=== PATIENT | female | born 1980 | race Caucasian/White ===

== ENCOUNTER 2016-11-25 09:34 | Day surgery (SDC) | payer MEDICARE, MEDICAID ==
[~2016-11-25 09:34] MED LIST: Lactated Ringers 1,000 ML IV SCH; Lidocaine 1%/Sod Bicarbonate in NS 8.4% 1 ML Syringe PRN; Sodium Chloride 0.9% 10 ML Syringe FLUSH PRN
[2016-11-25] MEDS ORDERED: cefOXitin 2 GM in Premix Bag 1 BAG IV SCH (10:00)
--- NOTE | 2016-11-25 10:37 | PCM.PREANE ---
Preanesthetic Assessment - Procedure Proposed Procedure: Procedure for prolapsed hemorrhoids, hemorrhoidpexy by stapling - Anesthesia/Transfusion/Family Hx Anesthesia History: Prior Anesthesia Without Reaction Type of Anesthesia Reaction: Excessive Nausea/Vomiting ("problems when waking up with vomiting just due to having an empty stomach ") Family History of Anesthesia Reaction: No Transfusion History: No Prior Transfusion(s) Intubation History: Unknown - Review of Systems General: No Symptoms Pulmonary: No Symptoms Cardiovascular: No Symptoms Gastrointestinal: Other (GERD ) Neurological: Numbness (left 2nd and third fingers ), Other (dystonia, involuntary muscle movements ) Other: Reports: Easy Bruising, Thyroid Problems (hypothyroid ) - Physical Assessment NPO Status Date: 11/24/16 NPO Status Time: 21:00 Pulse: 103 O2 Sat by Pulse Oximetry: 95 Respiratory Rate: 20 Blood Pressure: 115/80 Temperature: 37.1 C Height: 1.57 m Weight: 72.575 kg ASA Class: 2 Mental Status: Alert & Oriented x3 Airway Class: Mallampati = 2 Dentition: Reports: Normal Dentition Thyro-Mental Finger Breadths: 3 Mouth Opening Finger Breadths: 3 ROM/Head Extension: Full Lungs: Clear to Auscultation, Normal Respiratory Effort Cardiovascular: Regular Rate, Regular Rhythm - Allergies Allergies/Adverse Reactions: Allergies Allergy/AdvReac Type Severity Reaction Status Date / Time amoxicillin Allergy Cannot Verified 11/24/16 13:41 Remember bakuchiol [From APOP] Allergy Cannot Verified 11/24/16 13:41 Remember carbidopa Allergy Cannot Verified 11/24/16 13:41 Remember haloperidol Allergy Cannot Verified 11/24/16 13:41 Remember levetiracetam Allergy Cannot Verified 11/24/16 13:41 Remember penicillin V Allergy Cannot Verified 11/24/16 13:41 Remember tetracycline Allergy Cannot Verified 11/24/16 13:41 Remember trimethoprim Allergy Cannot Verified 11/24/16 13:41 Remember - Blood Blood Available: No Product(s) Available: None - Anesthesia Plan Pre-Op Medication Ordered: None - Acknowledgements Anesthesia Type Planned: MAC Pt an Appropriate Candidate for the Planned Anesthesia: Yes Alternatives and Risks of Anesthesia Discussed w Pt/Guardian: Yes Pt/Guardian Understands and Agrees with Anesthesia Plan: Yes PreAnesthesia Questionnaire HEENT History: Reports: Other (See Below) Other HEENT History: infected tooth, sore throat, dysphagia, hearing loss Cardiovascular History: Reports: None Respiratory History: Reports: Bronchitis, Recurrent Gastrointestinal History: Reports: GERD, Hemorrhoids Genitourinary History: Reports: UTI, Recurrent FACE CLEANER History: Reports: Other (See Below) Other OB/BYN History: vaginosis Musculoskeletal History: Reports: Arthritis, Other (See Below) Other Musculoskeletal History: dystonia, R wrist pain, L knee pain, muslce spasms Neurological History: Reports: Other (See Below) Other Neuro History: chorea, headaches, dizziness Psychiatric History: Reports: None Endocrine/Metabolic History: Reports: Hypothyroidism Hematologic History: Reports: None Immunologic History: Reports: None Oncologic (Cancer) History: Reports: None Dermatologic History: Reports: None - Past Surgical History Head Surgeries/Procedures: Reports: None HEENT Surgical History: Reports: Oral Surgery Cardiovascular Surgical History: Reports: None Respiratory Surgical History: Reports: None GI Surgical History: Reports: None Female Surgical History: Reports: Breast Reduction, Tubal Ligation Male Surgical History: Reports: None Endocrine Surgical History: Reports: None Neurological Surgical History: Reports: None Musculoskeletal Surgical History: Reports: None Oncologic Surgical History: Reports: None Dermatological Surgical History: Reports: None - SUBSTANCE USE Smoking Status *Q: Never Smoker Tobacco Use Within Last Twelve Months: No Second Hand Smoke Exposure: No Days Per Week of Alcohol Use: 0 Recreational Drug Use History: No - HOME MEDS Home Medications: Home Meds Cetirizine HCl/Pseudoephedrine [ZyrTEC-D] 1 tab PO BID PRN 11/24/16 [History] Cyclobenzaprine [Flexeril] 10 mg PO BID 11/24/16 [History] FLUoxetine [PROzac] 20 mg PO DAILY 11/24/16 [History] Ibuprofen 600 mg PO TID PRN 11/24/16 [History] Levothyroxine Sodium [Levoxyl] 12.5 mg PO DAILY 11/24/16 [History] Meclizine [Antivert] 1 - 2 tab PO DAILY PRN 11/24/16 [History] Omeprazole 40 mg PO DAILY 11/24/16 [History] Triamcinolone Acetonide 1 applic TOP BID 11/24/16 [History] - CURRENT (IN HOUSE) MEDS Current Meds: Current Medications Lactated Ringer's (Ringers, Lactated) 1,000 mls @ 125 mls/hr IV ASDIRECTED CHAR Stop: 11/25/16 23:00 Cefoxitin Sodium 2 gm/ Premix 50 mls @ 100 mls/hr IV ONETIME CHAR Lidocaine/Sodium Bicarbonate (Buffered Lidocaine 1% In Ns 8.4%) 0.25 ml .XX ONETIME PRN PRN Reason: Prior to IV Start Stop: 11/25/16 18:00 Sodium Chloride (Saline Flush) 10 ml FLUSH ASDIRECTED PRN PRN Reason: Keep Vein Open Stop: 11/25/16 18:00
[2016-11-25] MEDS ORDERED: Midazolam 1 MG/ML 2 ML SDV ONE (11:04)
[2016-11-25] MEDS ORDERED: fentaNYL 100 MCG/2 ML SDV ONE (11:04)
[2016-11-25] MEDS ORDERED: Lidocaine 1% with EPINEPHrine 1:100,000 20 ML MDV ONE (11:57)
[2016-11-25] MEDS ORDERED: Bupivacaine 0.5%/EPINEPHrine 1:200,000 50 ML MDV ONE (11:57)
[2016-11-25] MEDS ORDERED: Propofol 200 MG/20 ML SDV ONE (12:22)
--- NOTE | 2016-11-25 13:30 | PCM.OPNOTE ---
- General Post-Op/Procedure Note Date of Surgery/Procedure: 11/25/16 Operative Procedure(s): Procedure for prolapse and hemorrhoids- PPH hemorrhoidal pexy Findings: An anal tag and slightly prolapsing 3 column internal hemorrhoids Pre Op Diagnosis: Grade 3 internal hemorrhoids Post-Op Diagnosis: Same Anesthesia Technique: Local, MAC, Moderate Sedation Primary Surgeon: Kimani Ragland Pathology: Rectal strip EBL in mLs: 1 Complications: None Condition: Good Free Text/Narrative:: After adequate IV sedation and analgesia was obtained with monitoring the patient was placed in the prone jackknife position with her buttocks taped. Betadine solution prep was performed. Anoscopy revealed the 3 column internal hemorrhoids which were uncomplicated. Digital rectal examination revealed normal sphincter tone. A perianal block was performed next with lidocaine and Marcaine. A 2-0 Prolene pursestring suture line was placed about 4 cm above the dentate line. The 33 circular stapler was fired. A 1 cm strip of rectal mucosa was obtained. The staple line was hemostatic. A simple gauze was placed in the canal for a pressure dressing. There were no complications.
--- NOTE | 2016-11-25 13:42 | PCM48HPAN ---
Post Anesthesia Note - EVALUATION WITHIN 48HRS OF ANESTHETIC Vital Signs in Normal Range: Yes Patient Participated in Evaluation: Yes Respiratory Function Stable: Yes Airway Patent: Yes Cardiovascular Function Stable: Yes Hydration Status Stable: Yes Pain Control Satisfactory: Yes Nausea and Vomiting Control Satisfactory: Yes Mental Status Recovered: Yes
[2016-11-25 14:25] VITALS: BP 132/84
== END 2016-11-25 14:37 | disposition home or self-care (01) ==
LOC: JD.SDS 09:34
PROVIDERS: ATTEND Surgery
DX: K64.2 Third degree hemorrhoids (principal); K64.4 Residual hemorrhoidal skin tags; E03.9 Hypothyroidism, unspecified; Z88.0 Allergy status to penicillin; Z88.1 Allergy status to other antibiotic agents; Z88.8 Allergy status to other drugs, medicaments and biological substances; Z79.899 Other long term (current) drug therapy; Z98.890 Other specified postprocedural states; Z98.51 Tubal ligation status
CPT/HCPCS: 46947; 88304; J0694; J2250; J3010; J7120; 00902; J2704

== ENCOUNTER 2017-03-17 09:18 | Day surgery (SDC) | payer MEDICARE, MEDICAID ==
[~2017-03-17 09:18] MED LIST changes: +Lidocaine 1%/Sod Bicarbonate in NS 8.4% 1 ML Syringe IV PRN; -Lidocaine 1%/Sod Bicarbonate in NS 8.4% 1 ML Syringe PRN
[2017-03-17] MEDS ORDERED: Lidocaine 1% with EPINEPHrine 1:100,000 20 ML MDV ONE (09:47)
[2017-03-17] MEDS ORDERED: Bupivacaine 0.5%/EPINEPHrine 1:200,000 50 ML MDV ONE (09:47)
[2017-03-17] MEDS ORDERED: Lidocaine 1% 30 ML SDV ONE (09:49)
--- NOTE | 2017-03-17 10:03 | PCM.PREANE ---
Preanesthetic Assessment - Anesthesia/Transfusion/Family Hx Anesthesia History: Prior Anesthesia Without Reaction Family History of Anesthesia Reaction: No Transfusion History: No Prior Transfusion(s) Intubation History: Unknown - Review of Systems General: No Symptoms Pulmonary: No Symptoms Cardiovascular: No Symptoms Gastrointestinal: No Symptoms (GERD), Difficulty Swallowing Neurological: No Symptoms (History of chorea/dystonia/ Pt. presents with constant jittery body movements due to chorea.), Headache (history of chronic headaches), Numbness (left hand pointer and 3rd finger.) Other: Reports: Easy Bruising, Sinus Problem (history of sinus problems/sinus infections), Neck Pain, Anxiety - Physical Assessment NPO Status Date: 03/16/17 NPO Status Time: 21:30 Pulse: 74 O2 Sat by Pulse Oximetry: 96 Respiratory Rate: 16 Blood Pressure: 119/95 Temperature: 36.9 C Height: 1.55 m Weight: 66 kg ASA Class: 2 Mental Status: Alert & Oriented x3 Airway Class: Mallampati = 2 Dentition: Reports: Normal Dentition, Missing Tooth/Teeth, Caries Thyro-Mental Finger Breadths: 3 Mouth Opening Finger Breadths: 3 ROM/Head Extension: Full Lungs: Clear to Auscultation, Normal Respiratory Effort Cardiovascular: Regular Rate, Regular Rhythm, No Murmurs - Allergies Allergies/Adverse Reactions: Allergies Allergy/AdvReac Type Severity Reaction Status Date / Time amoxicillin Allergy Cannot Verified 03/16/17 13:08 Remember bakuchiol [From APOP] Allergy Cannot Verified 03/16/17 13:08 Remember carbidopa Allergy Cannot Verified 03/16/17 13:08 Remember haloperidol Allergy Cannot Verified 03/16/17 13:08 Remember levetiracetam Allergy Cannot Verified 03/16/17 13:08 Remember milk Allergy Cannot Verified 03/16/17 13:08 Remember penicillin V Allergy Cannot Verified 03/16/17 13:08 Remember tetracycline Allergy Cannot Verified 03/16/17 13:08 Remember trimethoprim Allergy Cannot Verified 03/16/17 13:08 Remember - Anesthesia Plan Pre-Op Medication Ordered: None - Acknowledgements Anesthesia Type Planned: MAC Pt an Appropriate Candidate for the Planned Anesthesia: Yes Alternatives and Risks of Anesthesia Discussed w Pt/Guardian: Yes Pt/Guardian Understands and Agrees with Anesthesia Plan: Yes PreAnesthesia Questionnaire HEENT History: Reports: Other (See Below) Other HEENT History: infected tooth, sore throat, dysphagia, hearing loss Cardiovascular History: Reports: None Respiratory History: Reports: Bronchitis, Recurrent Gastrointestinal History: Reports: GERD, Hemorrhoids Genitourinary History: Reports: UTI, Recurrent LOAN OPERATIONS MANAGER History: Reports: Other (See Below) Other OB/BYN History: vaginosis, hot flashes Musculoskeletal History: Reports: Arthritis, Other (See Below) Other Musculoskeletal History: dystonia, R wrist pain, L knee pain, muslce spasms Neurological History: Reports: Other (See Below) Other Neuro History: chorea, headaches, dizziness Psychiatric History: Reports: Other (See Below) Other Psychiatric History: nervous disorder Endocrine/Metabolic History: Reports: Hypothyroidism Other Endocrine/Metabolic History: euthyroid thyroiditis, thryoid cyst Hematologic History: Reports: None Immunologic History: Reports: None Oncologic (Cancer) History: Reports: None Dermatologic History: Reports: Eczema - Past Surgical History Head Surgeries/Procedures: Reports: None HEENT Surgical History: Reports: Oral Surgery Cardiovascular Surgical History: Reports: None Respiratory Surgical History: Reports: None GI Surgical History: Reports: Other (See Below) Other GI Surgeries/Procedures: procedure for prolapsed hemorrhoids Female Surgical History: Reports: Breast Reduction, Tubal Ligation Male Surgical History: Reports: None Endocrine Surgical History: Reports: None Neurological Surgical History: Reports: None Musculoskeletal Surgical History: Reports: None Oncologic Surgical History: Reports: None Dermatological Surgical History: Reports: None - SUBSTANCE USE Smoking Status *Q: Never Smoker Tobacco Use Within Last Twelve Months: No Second Hand Smoke Exposure: No Days Per Week of Alcohol Use: 0 Recreational Drug Use History: No - HOME MEDS Home Medications: Home Meds Cetirizine HCl/Pseudoephedrine [ZyrTEC-D] 1 tab PO BID PRN 11/24/16 [History] Cyclobenzaprine [Flexeril] 10 mg PO BID 11/24/16 [History] FLUoxetine [PROzac] 20 mg PO DAILY 11/24/16 [History] Ibuprofen 600 mg PO TID PRN 11/24/16 [History] Meclizine [Antivert] 1 - 2 tab PO DAILY PRN 11/24/16 [History] Omeprazole 40 mg PO DAILY 11/24/16 [History] Triamcinolone Acetonide 1 applic TOP BID 11/24/16 [History] Celecoxib [Celecoxib] 200 mg PO DAILY 03/16/17 [History] Hydrocortisone Acetate [Anusol-Hc] 25 mg RECTAL BEDTIME 03/16/17 [History] oxyCODONE HCl/Acetaminophen [oxyCODONE-Acetaminophen 5-325] 1 tab PO ASDIRECTED PRN 03/17/17 [History] - CURRENT (IN HOUSE) MEDS Current Meds: Current Medications Lactated Ringer's (Ringers, Lactated) 1,000 mls @ 125 mls/hr IV ASDIRECTED CHAR Stop: 03/17/17 23:00 Lidocaine/Sodium Bicarbonate (Buffered Lidocaine 1% In Ns 8.4%) 0.25 ml IV ONETIME PRN PRN Reason: Prior to IV Start Stop: 03/17/17 18:00 Sodium Chloride (Saline Flush) 10 ml FLUSH ASDIRECTED PRN PRN Reason: Keep Vein Open Stop: 03/17/17 18:00
[2017-03-17] MEDS ORDERED: fentaNYL 100 MCG/2 ML SDV ONE (10:36)
[2017-03-17] MEDS ORDERED: Ondansetron 4 MG/2 ML SDV ONE (10:36)
[2017-03-17] MEDS ORDERED: Lidocaine 1% 4 ML ONE (10:36)
[2017-03-17] MEDS ORDERED: Dexamethasone 4 MG/ML SDV ONE (10:36)
[2017-03-17] MEDS ORDERED: Propofol 200 MG/20 ML SDV ONE (10:36)
[2017-03-17] MEDS ORDERED: Midazolam 1 MG/ML 2 ML SDV ONE (10:37)
--- NOTE | 2017-03-17 12:54 | PCM.OPNOTE ---
- General Post-Op/Procedure Note Date of Surgery/Procedure: 03/17/17 Operative Procedure(s): 1. Anoscopy. 2. Fulguration of a staple line granuloma Findings: Polypoid type granulation tissue emanating from the previous staple line at the 6 o'clock position. There were no fissures or hemorrhoids. Pre Op Diagnosis: Intermittent bright red bleeding per rectum Post-Op Diagnosis: Staple line granuloma Anesthesia Technique: Local, MAC, Moderate Sedation Primary Surgeon: Kimani Ragland Pathology: None EBL in mLs: 0 Complications: None Condition: Good Free Text/Narrative:: After adequate IV sedation and analgesia was obtained the patient was placed in the prone jackknife position with her buttocks taped and with monitoring. Perianal inspection was unremarkable. Anoscopy revealed no fissures or fistulas. There were no external or internal hemorrhoids. Inspection of the previous PPH staple line revealed the findings above. At this point I injected 2 mL of 1% lidocaine with epinephrine in the base of the lesion. I cauterized the lesion to the rectal mucosa completely removing it. There were no complications. Blood loss was 0.
[2017-03-17 12:55] VITALS: BP 114/72
== END 2017-03-17 13:15 | disposition home or self-care (01) ==
LOC: JD.SDS 09:18
PROVIDERS: ATTEND Surgery
DX: K62.89 Other specified diseases of anus and rectum (principal); G25.5 Other chorea; G24.9 Dystonia, unspecified; E07.81 Sick-euthyroid syndrome; K04.7 Periapical abscess without sinus; H90.41 Sensorineural hearing loss, unilateral, right ear, with unrestricted hearing on the contralateral side; E04.1 Nontoxic single thyroid nodule; N76.0 Acute vaginitis; E03.9 Hypothyroidism, unspecified; Z88.1 Allergy status to other antibiotic agents; Z88.8 Allergy status to other drugs, medicaments and biological substances; Z88.0 Allergy status to penicillin; Z79.899 Other long term (current) drug therapy; Z98.51 Tubal ligation status; Z98.890 Other specified postprocedural states; Z91.011 Allergy to milk products
CPT/HCPCS: 46615; J1100; J2250; J2405; J3010; J7120; 00902; J2001; J2704

== ENCOUNTER 2018-05-16 12:00 | Emergency (ER) | payer MEDICARE, MEDICAID ==
[2018-05-16] MEDS ORDERED: HYDROmorphone 1 MG/ML Syringe IVPUSH STA (12:56)
[2018-05-16] MEDS ORDERED: Sodium Chloride 0.9% 1,000 ML IV SCH (13:00)
[2018-05-16] MEDS ORDERED: Sodium Chloride 0.9% 10 ML Syringe FLUSH ONE (13:10)
[2018-05-16] MEDS ORDERED: Diatrizoate Meglumine/Diatrizoate Sodium 37% 120 ML Bottle PO ONE (13:10)
[2018-05-16] MEDS ORDERED: Iopamidol 755 Mg/ML 200 ML Bottle IV ONE (13:12)
--- NOTE | 2018-05-16 14:03 | EDM.PDOC ---
ED HPI GENERAL MEDICAL PROBLEM - General Chief Complaint: Abdominal Pain Stated Complaint: [facility] Time Seen by Provider: 05/16/18 12:24 Source of Information: Reports: Patient, RN Notes Reviewed History Limitations: Reports: Uncooperative - History of Present Illness INITIAL COMMENTS - FREE TEXT/NARRATIVE: Patient is a 37-year-old female who presents to the ED via [facility] for evaluation of abdominal pain. She states that she has been having some right lower quadrant abdominal pain that started Wednesday night. She states that everything in her stomach hurts but the right lower quadrant is the most tender. She notes this to be a burning sort of pain that waxes and wanes in nature. She does note that she did start her menses Wednesday night early Wednesday morning, she thought maybe it was related to this or some slight constipation. She notes that she had a good BM last night however. She is able to pass gas, and belch. She thought maybe it was a gas buildup as well. She has a history of heartburn. She states the pain can be dull and then sharp at times. She notes that her stomach is a little tender or hurts when she does eat. She states that she has some hot flashes with sweating, some nausea, vomiting, no diarrhea or shortness of breath or chest pain. She does not have a history of ovarian cysts or painful periods. She further denies any dysuria, urinary frequency or urgency. She states that she took one ibuprofen for the pain, she states that she still has an appendix and gallbladder at this time. She notes an abdominal surgery history of a tubal ligation. She notes her primary care providers are Aranza Barnes and Matt Gaffney at the [facility]. The patient states that she is hungry and is able to eat but is somewhat nauseous and it is painful to eat. She had supper last night but has not eaten much for food today at all. Right Lower Abdominal Pain Score (Numeric/FACES): 9 - Related Data Allergies Allergy/AdvReac Type Severity Reaction Status Date / Time bakuchiol [From APOP] Allergy Cannot Verified 05/16/18 12:09 Remember carbidopa Allergy Cannot Verified 05/16/18 12:09 Remember penicillin V Allergy Itching Verified 05/16/18 12:09 tetracycline Allergy Cannot Verified 05/16/18 12:09 Remember trimethoprim Allergy Hives Verified 05/16/18 12:09 amoxicillin AdvReac Nausea and Verified 05/16/18 12:09 Vomiting haloperidol AdvReac Other Verified 05/16/18 12:09 levetiracetam AdvReac Vomiting Verified 05/16/18 12:09 milk AdvReac Other Verified 05/16/18 12:09 Home Meds: Home Meds FLUoxetine [PROzac] 20 mg PO BEDTIME 11/24/16 [History] Ibuprofen 600 mg PO TID PRN 11/24/16 [History] Levothyroxine [Synthroid] 50 mcg PO BEDTIME 01/25/18 [History] Zolpidem Tartrate [Ambien] 5 mg PO BEDTIME PRN 01/25/18 [History] traMADol [Ultram] 50 - 100 mg PO TID PRN 01/25/18 [History] traMADol [Ultram] 50 mg PO Q6H PRN #28 tab 05/16/18 [Rx] Past Medical History HEENT History: Reports: Other (See Below) Other HEENT History: infected tooth, sore throat, dysphagia, hearing loss Cardiovascular History: Reports: None Respiratory History: Reports: Bronchitis, Recurrent Gastrointestinal History: Reports: GERD, Hemorrhoids Genitourinary History: Reports: UTI, Recurrent YARN SPINNER History: Reports: Other (See Below) Other YARN SPINNER History: vaginosis, hot flashes Musculoskeletal History: Reports: Arthritis, Other (See Below) Other Musculoskeletal History: dystonia, R wrist pain, L knee pain, muslce spasms Neurological History: Reports: Other (See Below) Other Neuro History: chorea, headaches, dizziness Psychiatric History: Reports: Other (See Below) Other Psychiatric History: nervous disorder Endocrine/Metabolic History: Reports: Hypothyroidism Other Endocrine/Metabolic History: euthyroid thyroiditis, thryoid cyst Hematologic History: Reports: None Immunologic History: Reports: None Oncologic (Cancer) History: Reports: None Dermatologic History: Reports: Eczema - Past Surgical History Head Surgeries/Procedures: Reports: None HEENT Surgical History: Reports: Oral Surgery Cardiovascular Surgical History: Reports: None Respiratory Surgical History: Reports: None GI Surgical History: Reports: Other (See Below) Other GI Surgeries/Procedures: procedure for prolapsed hemorrhoids Female Surgical History: Reports: Breast Reduction, Tubal Ligation Endocrine Surgical History: Reports: None Neurological Surgical History: Reports: None Musculoskeletal Surgical History: Reports: None Oncologic Surgical History: Reports: None Dermatological Surgical History: Reports: None Social & Family History - Tobacco Use Smoking Status *Q: Never Smoker - Caffeine Use Caffeine Use: Reports: None - Recreational Drug Use Recreational Drug Use: No ED ROS GENERAL - Review of Systems Review Of Systems: See Below Constitutional: Reports: Diaphoresis, Other (hot flashes) HEENT: Reports: No Symptoms Respiratory: Reports: No Symptoms Cardiovascular: Reports: No Symptoms Endocrine: Reports: No Symptoms GI/Abdominal: Reports: Abdominal Pain (RLQ and RUQ), Nausea, Vomiting (1 episode of bililous vomiting today). Denies: Bloody Stool, Constipation, Diarrhea : Denies: Dysuria, Flank Pain, Frequency Musculoskeletal: Reports: No Symptoms Skin: Reports: No Symptoms Neurological: Reports: Pre-Existing Deficit (nerve disorder, chorea) Psychiatric: Reports: No Symptoms Hematologic/Lymphatic: Reports: No Symptoms Immunologic: Reports: No Symptoms ED EXAM, GI/ABD - Physical Exam Exam: See Below Exam Limited By: No Limitations General Appearance: Alert, WD/WN, No Apparent Distress Eyes: Bilateral: Normal Appearance Ears: Normal External Exam Nose: Normal Inspection Throat/Mouth: Normal Inspection, Normal Lips, Normal Teeth, Normal Oropharynx, Normal Voice, No Airway Compromise Head: Atraumatic, Normocephalic Neck: Normal Inspection Respiratory/Chest: No Respiratory Distress, Lungs Clear, Normal Breath Sounds, No Accessory Muscle Use, Chest Non-Tender Cardiovascular: Normal Peripheral Pulses, Regular Rate, Rhythm, No Murmur GI/Abdominal Exam: Normal Bowel Sounds, Soft, No Distention, Tender (RUQ and RLQ exquisitely, diffuse tenderness throughout abdomen). No: Rigid, Rebound Extremities: Normal Inspection, Normal Capillary Refill Neurological: Alert, Oriented, Normal Cognition, Other (chorea observed, pt states this is normal for her, and has not worsened from her baseling) Psychiatric: Normal Affect, Normal Mood Skin Exam: Warm, Dry, Intact, Normal Color, No Rash Course - Vital Signs Last Recorded V/S: Last Vital Signs Temp 98.1 F 05/16/18 12:07 Pulse 71 05/16/18 12:07 Resp 16 05/16/18 12:07 BP Pulse Ox 100 05/16/18 12:07 - Orders/Labs/Meds Orders: Active Orders 24 hr Category Date Time Status UA W/MICROSCOPIC [URIN] Stat Lab 05/16/18 15:31 Received Sodium Chloride 0.9% [Normal Saline] 1,000 ml Med 05/16/18 13:00 Active IV ASDIRECTED Medication Orders Sodium Chloride (Normal Saline) 1,000 mls @ 999 mls/hr IV ASDIRECTED CHAR Last Admin: 05/16/18 13:11 Dose: 999 mls/hr Labs: Laboratory Tests 05/16/18 05/16/18 05/16/18 Range/Units 14:10 14:10 15:31 WBC 9.90 (3.98-10.04) K/mm3 RBC 4.63 (3.98-5.22) M/mm3 Hgb 12.4 (11.2-15.7) gm/L Hct 37.8 (34.1-44.9) % MCV 81.6 (79.4-94.8) fl MCH 26.8 (25.6-32.2) pg MCHC 32.8 (32.2-35.5) g/dl RDW Std Deviation 44.5 (36.4-46.3) fL Plt Count 419 H (182-369) K/mm3 MPV 9.5 (9.4-12.3) fl Neutrophils % (Manual) 76 H (40-60) % Band Neutrophils % 1 (0-10) % Lymphocytes % (Manual) 18 L (20-40) % Atypical Lymphs % 0 % Monocytes % (Manual) 4 (2-10) % Eosinophils % (Manual) 1 (0.7-5.8) % Basophils % (Manual) 0 L (0.1-1.2) Platelet Estimate Adequate RBC Morph Comment Normal Sodium 140 (136-145) mEq/L Potassium 3.6 (3.5-5.1) mEq/L Chloride 105 (98-107) mEq/L Carbon Dioxide 22 (21-32) mEq/L Anion Gap 16.6 H (5-15) BUN 8 (7-18) mg/dL Creatinine 0.8 (0.55-1.02) mg/dL Est Cr Clr Drug Dosing 76.15 mL/min Estimated GFR (MDRD) > 60 (>60) mL/min BUN/Creatinine Ratio 10.0 L (14-18) Glucose 88 (74-106) mg/dL Calcium 9.2 (8.5-10.1) mg/dL Total Bilirubin 0.6 (0.2-1.0) mg/dL AST 15 (15-37) U/L ALT 14 (14-59) U/L Alkaline Phosphatase 74 (46-116) U/L Total Protein 7.3 (6.4-8.2) g/dl Albumin 3.7 (3.4-5.0) g/dl Globulin 3.6 gm/dL Albumin/Globulin Ratio 1.0 (1-2) Lipase 95 (73-393) U/L Urine HCG, Qual Negative (NEGATIVE) Meds: Medications Generic Name Dose Route Start Last Admin Trade Name Freq PRN Reason Stop Dose Admin Sodium Chloride 1,000 mls @ 999 mls/hr 05/16/18 13:00 05/16/18 13:11 Normal Saline IV 999 mls/hr ASDIRECTED CHAR Administration Discontinued Medications Generic Name Dose Route Start Last Admin Trade Name Freq PRN Reason Stop Dose Admin Diatrizoate Meglum/Diatrizoate Sod 90 ml 05/16/18 13:10 05/16/18 14:19 Gastrografin 37% PO 05/16/18 13:11 90 ml ONETIME ONE Administration Hydromorphone HCl 0.5 mg 05/16/18 12:56 05/16/18 13:10 Dilaudid IVPUSH 05/16/18 12:57 0.5 mg ONETIME STA Administration Iopamidol 200 ml 05/16/18 13:12 05/16/18 14:19 Isovue-370 (76%) IV 05/16/18 13:13 100 ml ONETIME ONE Administration Sodium Chloride 10 ml 05/16/18 13:10 05/16/18 14:19 Saline Flush FLUSH 05/16/18 13:11 10 ml ONETIME ONE Administration - Re-Assessments/Exams Free Text/Narrative Re-Assessment/Exam: 05/16/18 13:10 Patient presents to the ED for the evaluation of abdominal pain. I did order a CBC, CMP, lipase, UA with HCG, IV fluids, abdominal/pelvis CT with contrast for further evaluation. 05/16/18 15:[address] is done and does not demonstrate any sign of gallstones, or appendicitis at this time. The radiologist noted fibroid change within the uterus. Her other labs do not demonstrate any sign of an acute bacterial infection, UA is pending at this time. 05/16/18 15:29 Results were discussed with the patient, she states that she still is having some mild pain I did discuss with her the possibility of following up with OB/ [facility] [employer] DEVELOPER for her issues. I will give the patient some tramadol for pain relief and some antinausea medications and have her follow up with OB for further management. Departure - Departure Time of Disposition: 16:41 Disposition: Home, Self-Care 01 Condition: Fair Clinical Impression: Lower abdominal pain, unspecified - Discharge Information *PRESCRIPTION DRUG MONITORING PROGRAM REVIEWED*: No *COPY OF PRESCRIPTION DRUG MONITORING REPORT IN PATIENT ANGELITA: No Prescriptions: traMADol [Ultram] 50 mg PO Q6H PRN #28 tab PRN Reason: Pain Instructions: Pain Medicine Instructions, [id number], Abdominal Pain, Adult, [id number] Referrals: Aranza Barnes [employer] [Primary Care Provider] - Forms: ED Department Discharge Additional Instructions: You have been evaluated in the ED today for your abdominal pain. You did have a workup done today including lab work and a CT of the abdomen. The CT was done with contrast, your urinalysis did show some blood in your urine which is somewhat suggestive of a kidney stone with your presentation. However the CT as I stated above was done with contrast and would obscure the kidney stone on the study. Management for this is increase fluid intake and pain meds. You have been provided with a prescription for tramadol, please take one tab every 4-6 hours as needed for pain. You may take 400 mg of ibuprofen with this to provide further pain relief if needed. Please strain your urine over the next few days to see if this does provide a kidney stone. You may also have blood in your urine due to being on your menses. Although with your pain in is more suggestive of a kidney stone at this time. Your CT did demonstrate fibroid change in the uterus, please follow up with OB/ [facility] [employer] END DEVELOPER at your soonest convenience for further management of this please call and pick an YARN SPINNER provider of your choice. Please return to the ED if your symptoms change or worsen. - My Orders Last 24 Hours: My Active Orders 05/16/18 13:00 Sodium Chloride 0.9% [Normal Saline] 1,000 ml IV ASDIRECTED 05/16/18 15:31 UA W/MICROSCOPIC [URIN] Stat - Assessment/Plan Last 24 Hours: My Active Orders 05/16/18 13:00 Sodium Chloride 0.9% [Normal Saline] 1,000 ml IV ASDIRECTED 05/16/18 15:31 UA W/MICROSCOPIC [URIN] Stat
--- NOTE | 2018-05-16 14:51 | CT ---
CT abdomen and pelvis Technique: Multiple axial sections were obtained from slightly below the dome of the diaphragm inferiorly to the pubic symphysis. Intravenous and oral contrast was utilized. Delayed images were also obtained through the bladder. Comparison: No prior abdominal imaging is available. Findings: Visualized lung bases are clear. Liver shows no focal parenchymal abnormality. Spleen appears within normal limits. Adrenal glands show no nodule. Pancreas is within normal limits. Gallbladder contains no calcified gallstones. Kidneys show symmetric contrast enhancement without hydronephrosis or mass. Aorta shows no aneurysm. No retroperitoneal adenopathy or mesenteric abnormalities are seen. Appendix believed to be visualized. Fibroid change is noted within the uterus. No free fluid or inflammatory change is seen. Bone window settings were reviewed which show disc space narrowing and vacuum phenomena within the L5-S1 disc. Impression: 1. Fibroid change within the uterus. 2. Other incidental findings. Nothing acute is seen on CT study of the abdomen and pelvis. Diagnostic code #2
== END 2018-05-16 17:16 | disposition home or self-care (01) ==
LOC: JD.ED 12:00
DX: R10.31 Right lower quadrant pain (principal); E03.9 Hypothyroidism, unspecified; K21.9 Gastro-esophageal reflux disease without esophagitis; Z88.0 Allergy status to penicillin; Z88.1 Allergy status to other antibiotic agents; Z91.011 Allergy to milk products; Z88.8 Allergy status to other drugs, medicaments and biological substances; Z79.899 Other long term (current) drug therapy
CPT/HCPCS: 36415; 74177; 80053; 81001; 81025; 83690; 85007; 85027; 96361; 96374; 99284; J1170; J7040; Q9963; Q9967

== ENCOUNTER 2018-06-21 08:00 | Observation (INO) | payer MEDICARE, MEDICAID ==
--- NOTE | 2018-06-21 07:57 | PCM.PREANE ---
Preanesthetic Assessment - Anesthesia/Transfusion/Family Hx Anesthesia History: Prior Anesthesia Reaction Type of Anesthesia Reaction: Excessive Nausea/Vomiting Family History of Anesthesia Reaction: No Transfusion History: No Prior Transfusion(s) Intubation History: Unknown - Review of Systems General: No Symptoms Pulmonary: No Symptoms, Cough (URI noted 2 weeks ago, patient states cough is better.) Cardiovascular: No Symptoms, Dyspnea on Exertion Gastrointestinal: No Symptoms (History of GERD), Abdominal Pain (upper abdominal pain 05/25: after effects of post menstrual cycle.), Difficulty Swallowing (History of:) Neurological: No Symptoms (History of lumbar pain with radiculopathy bilaterally noted on occasion.), Headache, Numbness (dystonia, involuntary muscle movements(history of chorea)), Difficulty Walking, Gait Disturbance ( from chorea) Other: Reports: Easy Bruising, Thyroid Problems (history of hypothyroid), Sinus Problem (allergic rhinitis), Neck Pain - Physical Assessment NPO Status Date: 06/20/18 NPO Status Time: 21:00 Pulse: 89 O2 Sat by Pulse Oximetry: 99 Respiratory Rate: 20 Blood Pressure: 140/97 Temperature: 36.3 C Height: 1.57 m Weight: 67 kg ASA Class: 2 Mental Status: Alert & Oriented x3 Airway Class: Mallampati = 2 Dentition: Reports: Normal Dentition, Missing Tooth/Teeth, Caries Thyro-Mental Finger Breadths: 3 Mouth Opening Finger Breadths: 3 ROM/Head Extension: Full Lungs: Clear to Auscultation, Normal Respiratory Effort Cardiovascular: Regular Rate, Regular Rhythm, No Murmurs - Lab Values: All labs reviewed and noted and within acceptable ranges to proceed with scheduled procedure. - Allergies Allergies/Adverse Reactions: Allergies Allergy/AdvReac Type Severity Reaction Status Date / Time bakuchiol [From APOP] Allergy Other Verified 06/20/18 13:53 carbidopa Allergy Cannot Verified 06/20/18 13:53 Remember clavulanic acid Allergy Itching Verified 06/20/18 13:53 [From Augmentin] levetiracetam Allergy Hives Verified 06/20/18 13:53 penicillin V Allergy Itching Verified 06/20/18 13:53 sulfamethoxazole Allergy Hives Verified 06/20/18 13:53 [From Bactrim] tetracycline Allergy Cannot Verified 06/20/18 13:53 Remember trimethoprim Allergy Hives Verified 06/20/18 13:53 amoxicillin AdvReac Nausea and Verified 06/20/18 13:53 Vomiting haloperidol AdvReac Other Verified 06/20/18 13:53 milk AdvReac Other Verified 06/20/18 13:53 - Anesthesia Plan Pre-Op Medication Ordered: None - Acknowledgements Anesthesia Type Planned: General Anesthesia Pt an Appropriate Candidate for the Planned Anesthesia: Yes Alternatives and Risks of Anesthesia Discussed w Pt/Guardian: Yes Pt/Guardian Understands and Agrees with Anesthesia Plan: Yes PreAnesthesia Questionnaire HEENT History: Reports: Hard of Hearing, Other (See Below) Other HEENT History: Allergic rhinitis, sensorineural hearing loss right ear, tooth pain/infected tooth, sinusitis, sore throat Cardiovascular History: Reports: None Other Cardiovascular History: Hypokalemia Respiratory History: Reports: Bronchitis, Recurrent, Other (See Below) Other Respiratory History: Acute URI, cough Gastrointestinal History: Reports: Hemorrhoids Other Gastrointestinal History: Abdominal pain, rectal bleeding, prolapsed internal hemorrhoids (Grade 3) Genitourinary History: Reports: UTI, Recurrent Other Genitourinary History: Hematuria SIMONIZER History: Reports: Other (See Below) Other OB/BYN History: Vaginosis, yeast infection Musculoskeletal History: Reports: Arthritis Other Musculoskeletal History: Left knee pain, left foot pain, lumbar back pain , right wrist pain Neurological History: Reports: Headaches, Chronic Other Neuro History: Chorea, dystonia, lumbar radiculopathy Psychiatric History: Reports: Other (See Below) Other Psychiatric History: Insomnia Endocrine/Metabolic History: Reports: Hypothyroidism Other Endocrine/Metabolic History: Elevated TSH, euthyroid thyroiditis, thyroid cyst, thyroid nodule Hematologic History: Reports: None Immunologic History: Reports: None Oncologic (Cancer) History: Reports: None Dermatologic History: Reports: Eczema Other Dermatologic History: Open wound of knee, skin lesions - Past Surgical History Head Surgeries/Procedures: Reports: None Other HEENT Surgeries/Procedures: [place] teeth extraction Cardiovascular Surgical History: Reports: None Respiratory Surgical History: Reports: None GI Surgical History: Reports: None Female Surgical History: Reports: Breast Reduction, Tubal Ligation Neurological Surgical History: Reports: None Musculoskeletal Surgical History: Reports: Carpal Tunnel Oncologic Surgical History: Reports: None Dermatological Surgical History: Reports: None - SUBSTANCE USE Smoking Status *Q: Never Smoker Second Hand Smoke Exposure: No Recreational Drug Use History: No - HOME MEDS Home Medications: Home Meds Ibuprofen 600 mg PO TID PRN 11/24/16 [History] Zolpidem Tartrate [Ambien] 5 mg PO BEDTIME PRN 01/25/18 [History] Potassium Chloride [Klor-Con 10] 20 meq PO DAILY 06/20/18 [History] - CURRENT (IN HOUSE) MEDS Current Meds: Current Medications Lactated Ringer's (Ringers, Lactated) 1,000 mls @ 125 mls/hr IV ASDIRECTED CHAR Stop: 06/21/18 23:00 Lidocaine/Sodium Bicarbonate (Buffered Lidocaine 1% In Ns 8.4%) 0.25 ml IDERM ONETIME PRN PRN Reason: Prior to IV Start Stop: 06/21/18 18:00 Sodium Chloride (Saline Flush) 10 ml FLUSH ASDIRECTED PRN PRN Reason: Keep Vein Open Stop: 06/21/18 18:00 Discontinued Medications Cefazolin Sodium (Ancef) Confirm Administered Dose 2 gm .ROUTE .STK-MED ONE Stop: 06/21/18 07:31 Dexamethasone (Dexamethasone) Confirm Administered Dose 20 mg .ROUTE .STK-MED ONE Stop: 06/21/18 07:31 Fentanyl (Sublimaze) Confirm Administered Dose 250 mcg .ROUTE .STK-MED ONE Stop: 06/21/18 07:32 Hydromorphone HCl (Dilaudid) Confirm Administered Dose 0.5 mg .ROUTE .STK-MED ONE Stop: 06/21/18 07:31 Lidocaine HCl (Xylocaine-Mpf 1%) Confirm Administered Dose 6 mls @ as directed .ROUTE .STK-MED ONE Stop: 06/21/18 07:31 Lactated Ringer's (Ringers, Lactated) Confirm Administered Dose 1,000 mls @ as directed .ROUTE .STK-MED ONE Stop: 06/21/18 07:31 Ketorolac Tromethamine (Toradol) Confirm Administered Dose 30 mg .ROUTE .STK- MED ONE Stop: 06/21/18 07:31 Midazolam HCl (Versed 1 Mg/Ml) Confirm Administered Dose 2 mg .ROUTE .STK-MED ONE Stop: 06/21/18 07:32 Ondansetron HCl (Zofran) Confirm Administered Dose 4 mg .ROUTE .STK-MED ONE Stop: 06/21/18 07:31 Propofol (Diprivan 20 Ml) Confirm Administered Dose 200 mg .ROUTE .STK-MED ONE Stop: 06/21/18 07:31 Rocuronium Roberts (Zemuron) Confirm Administered Dose 50 mg .ROUTE .STK-MED ONE Stop: 06/21/18 07:31
[~2018-06-21 08:00] MED LIST changes: +Dexamethasone 4 MG/ML 5 ML MDV ONE; +HYDROmorphone 0.5 MG/0.5 ML Syringe ONE; +Ketorolac 30 MG/ML SDV ONE; +Lactated Ringers 1,000 ML ONE; +Lidocaine 1% 6 ML ONE; +Lidocaine 1%/Sod Bicarbonate in NS 8.4% 1 ML Syringe IDERM PRN; -Lidocaine 1%/Sod Bicarbonate in NS 8.4% 1 ML Syringe IV PRN; +Midazolam 1 MG/ML 2 ML SDV ONE; +Ondansetron 4 MG/2 ML SDV ONE; +Propofol 200 MG/20 ML SDV ONE; +Rocuronium 50 MG/5 ML Vial ONE; +Scopolamine 1.5 MG Transdermal Patch TRDERM PRN; +ceFAZolin 1 GM Vial ONE; +fentaNYL 250 MCG/5 ML SDV ONE
[2018-06-21] MEDS ORDERED: Albuterol 0.083% 2.5 MG/3 ML Neb Soln NEB PRN ×2 (08:01→09:15)
[2018-06-21] MEDS ORDERED: Bupivacaine 0.5% 30 ML SDV ONE (08:06)
[2018-06-21] MEDS ORDERED: Sodium Chloride 0.9% 50 ML SDV ONE (08:06)
[2018-06-21] MEDS ORDERED: Lidocaine 1% with EPINEPHrine 1:100,000 20 ML MDV ONE (08:06)
[2018-06-21] MEDS ORDERED: Midazolam 1 MG/ML 2 ML SDV ONE (08:51)
[2018-06-21] MEDS ORDERED: Haloperidol Lactate 5 MG/ML SDV IVPUSH PRN (09:15)
[2018-06-21] MEDS ORDERED: diphenhydrAMINE 50 MG/ML SDV IVPUSH PRN (09:15)
[2018-06-21] MEDS ORDERED: Midazolam 1 MG/ML 2 ML SDV IVPUSH PRN (09:15)
[2018-06-21] MEDS ORDERED: Phenylephrine 1 MG in Sodium Chloride 0.9% 10 ML IV SCH (09:15)
[2018-06-21] MEDS ORDERED: ePHEDrine 50 MG/ML SDV IVPUSH PRN (09:15)
[2018-06-21] MEDS ORDERED: Ondansetron 4 MG/2 ML SDV IVPUSH PRN (09:15)
[2018-06-21] MEDS ORDERED: HYDROmorphone 0.5 MG/0.5 ML Syringe IVPUSH PRN (09:15)
[2018-06-21] MEDS ORDERED: Lactated Ringers 1,000 ML ONE (09:32)
[2018-06-21] MEDS ORDERED: Phenylephrine/Normal Saline 100 MCG/ML 10 ML Syringe ONE (09:34)
[2018-06-21] MEDS ORDERED: Neostigmine Methylsulfate 1 MG/ML 5 ML Syringe ONE (09:45)
[2018-06-21] MEDS: fentaNYL 100 MCG/2 ML SDV IVPUSH PRN ×2 (10:20→11:20)
--- NOTE | 2018-06-21 10:57 | PCM.POSTAN ---
POST ANESTHESIA ASSESSMENT - MENTAL STATUS Mental Status: Alert - VITAL SIGNS Pulse Rate: 114 SaO2: 100 (3LPM nasal cannula) Resp Rate: 17 Blood Pressure: 146/83 Temperature: 36.3 C - RESPIRATORY Respiratory Status: Respiratory Rate WNL, Airway Patent, O2 Saturation Stable, Supplemental Oxygen - CARDIOVASCULAR CV Status: Pulse Rate WNL, Blood Pressure Stable - GASTROINTESTINAL GI Status: No Symptoms - POST OP HYDRATION Hydration Status: Adequate & Stable
[2018-06-21] MEDS ORDERED: Lactated Ringers 1,000 ML IV SCH (11:00)
--- NOTE | 2018-06-21 11:03 | PCM.OPNOTE ---
- General Post-Op/Procedure Note Date of Surgery/Procedure: 06/21/18 Operative Procedure(s): Total abdominal hysterectomy with bilateral salpingectomy Findings: Uterus was found to be associated with multiple fibroids. 2 largest fibroids were proximately 4 x 5 cm in diameter and were subserosal in location within the uterus. Ovaries were functional and normal appearance. Fallopian tubes bilaterally appeared to be status post ligation. Appendix was flaccid and noninflamed. Pre Op Diagnosis: 1. Menorrhagia. 2. Uterine fibroids. 3. Irregular menses. 4. Dysmenorrhea Post-Op Diagnosis: Same Anesthesia Technique: General ET Tube Other Anesthesia Type: Marcaine 0.5%20 mL local Primary Surgeon: Isaias Owens Secondary Surgeon: Oscar Jones Anesthesia Provider: Ekaterina Cardoso Reason Roof Fitter Was Necessary: Retraction, assistance, patient safety, quality of care. Fluid Replacement, Intraop: 1,500 Output, Urine Amount: 200 EBL in mLs: 50 Drain/Tube Comments:: Indwelling bladder catheter Condition: Good Free Text/Narrative:: Surgery duration: 60 minutes Procedure: After adequate consent was obtained, the patient was taken to the operating room. She was given 2 g of Ancef IV for infection prophylaxis. She had sequential compression stockings placed for DVT prophylaxis. She was administered general endotracheal anesthesia. After adequate administration of anesthesia patient was placed in a dorsal lithotomy position and was prepped vaginally and abdominally in the routine fashion. Coon catheter was placed. Patient's abdomen was then opened through a Pfannenstiel skin incision. The incision was carried down through skin, subcutaneous and fascial layers. Abdominal cavity was entered without problems. A medium size Gideon self-retaining retractor was placed. The uterus was elevated with a double-tooth tenaculum at the fundus. Is found at multiple fibroids including 2 large fibroids largest in the uterus itself extending subserosally into the posterior cul-de-sac. Using a LigaSure vessel closure device the fallopian tube mesosalpinx was taken down on the patient's left side. Ovaries were conserved per patient desire. The ovarian ligament, round ligament, broad ligament were then taken down in a routine stepwise fashion using the LigaSure system. The same was done on the right side. She be noted that the fallopian tubes had scarring consistent with previous tubal ligation. The cardinal ligaments were taken down on each side to the level of the to the cervix. The angles of the vagina were then crossclamped using Tiffanie clamps 2 these pedicles were cut and were suture ligated with Tiffanie stitch of #1 Vicryl. A short running, locked suture of #1 Vicryl was then placed in the mid vagina to complete the closure. Hemostasis was confirmed at this time. A small [id number] suture was placed in the posterior aspect of the cervix in the peritoneal layer because of a small bleeder. The pelvis was irrigated and fluid was aspirated. The lap sponges that had been placed were removed. The abdominal was then closed. The fascia was closed with a running suture of #1 PDS from angle to angle. 2 bleeders in subcutaneous area were controlled with cautery. Subcuticular closure was then undertaken using 3- 0 Monocryl suture on the Ramses needle. The incision was further asked made with Prineo mesh. The patient was awakened from general endotracheal anesthesia and was discharged from the operating room in good condition.
[2018-06-21] MEDS ORDERED: hydrOXYzine HCl 50 MG Tab PO PRN (12:52)
[2018-06-21] MEDS: HYDROmorphone 0.5 MG/0.5 ML Syringe IVPUSH PRN ×3 (13:04→23:28)
[2018-06-21] MEDS: Acetaminophen/oxyCODONE 325-5 MG Tab PO PRN ×2 (16:28→20:39)
[2018-06-21] MEDS: Ibuprofen 600 MG Tab PO PRN (19:39)
[2018-06-21] MEDS: Benzocaine/Cetylpyridinium/Menthol Lozenge MUCMEM PRN (20:39)
[2018-06-22] MEDS: Acetaminophen/oxyCODONE 325-5 MG Tab PO PRN ×2 (03:02→07:04)
[2018-06-22] MEDS: Benzocaine/Cetylpyridinium/Menthol Lozenge MUCMEM PRN ×3 (03:12→08:51)
[2018-06-22] MEDS: Ibuprofen 600 MG Tab PO PRN (04:06)
--- NOTE | 2018-06-22 07:35 | PCM48HPAN ---
Post Anesthesia Note - EVALUATION WITHIN 48HRS OF ANESTHETIC Vital Signs in Normal Range: Yes Patient Participated in Evaluation: Yes Respiratory Function Stable: Yes Airway Patent: Yes Cardiovascular Function Stable: Yes Hydration Status Stable: Yes Pain Control Satisfactory: Yes Nausea and Vomiting Control Satisfactory: Yes (scop patch on- no nausea) Mental Status Recovered: Yes Pulse Rate: 85 Resp Rate: 14 Temperature: 99.0 F Blood Pressure: 123/81
--- NOTE | 2018-06-22 07:56 | PCM.DCSUM1 ---
Discharge Summary - Hospital Course Free Text/Narrative:: Akil is a 37-year-old nulligravida white female who underwent total abdominal hysterectomy yesterday 06/21/2018. Diagnosis was menorrhagia, uterine enlargement with uterine fibroids, dysmenorrhea. Patient has done well postoperatively. She is on Percocet and ibuprofen for pain control. She is ambulating well, has minimal lochia and is not having any nausea. She is tolerating diet well. She is desiring discharge home. Diagnosis: Stroke: No - Discharge Data Discharge Date: 06/22/18 Discharge Disposition: Home, Self-Care 01 Condition: Good - Patient Summary/Data Operative Procedure(s) Performed: Total abdominal hysterectomy with bilateral salpingectomy - Patient Instructions Diet: Regular Diet as Tolerated Activity: As Tolerated Driving: Do Not Drive (1 week) Showering/Bathing: May Shower - Discharge Plan Home Medications: Home Meds Zolpidem Tartrate [Ambien] 5 mg PO BEDTIME PRN 01/25/18 [History] Potassium Chloride [Klor-Con 10] 10 meq PO BID 06/20/18 [History] Acetaminophen/oxyCODONE [Percocet 325-5 MG] 2 tab PO Q4H PRN tablet 06/22/18 [ Rx] Ibuprofen [Motrin] 600 mg PO Q4H PRN tablet 06/22/18 [Rx] Referrals: Isaias Owens MD [Physician] - (Return to clinic[facility] weeks.) - Discharge Summary/Plan Comment DC Time >30 min.: No Discharge Summary/Plan Comment: Discharge instructions: 1. Discharge home 2. Diet, activity and follow-up discussed with patient. Regular diet recommended 3. Precautions given concern increased pain, bleeding, temperature, signs/ symptoms of DVT/PE. 4. Medications per home medication was printed, discussed with and given to the patient. 5. Return to clinic-Dr. Owens[facility] in 2 weeks. Diagnosis: Patient status post total abdominal hysterectomy. Diagnosis includes the followin. Uterine fibroids 2. Menorrhagia 3. Dysmenorrhea Condition: Good - Patient Data Vitals - Most Recent: Last Vital Signs Temp 37.2 C 06/22/18 07:34 Pulse 85 06/22/18 07:34 Resp 14 06/22/18 07:34 BP 123/81 05/08/19 07:34 Pulse Ox 94 L 06/22/18 04:09 Weight - Most Recent: 67.132 kg I&O - Last 24 hours: Intake & Output 06/21/18 06/22/18 06/22/18 22:59 06:59 14:59 Intake Total 1240 Output Total 150 Balance 1090 Med Orders - Current: Current Medications Benzocaine/Menthol (Cepacol Sore Throat) 1 lozenge MUCMEM Q2HR PRN PRN Reason: Sore Throat Last Admin: 06/22/18 07:05 Dose: 1 lozenge Hydromorphone HCl (Dilaudid) 0.2 mg IVPUSH Q2H PRN PRN Reason: Pain (severe 7-10) Last Admin: 06/21/18 23:28 Dose: 0.2 mg Hydroxyzine HCl (Atarax) 50 mg PO Q6H PRN PRN Reason: Anxiety Last Admin: 06/21/18 13:07 Dose: 50 mg Lactated Ringer's (Ringers, Lactated) 1,000 mls @ 125 mls/hr IV ASDIRECTED CHAR Ibuprofen (Motrin) 600 mg PO Q4H PRN PRN Reason: Pain (mild 1-3) Last Admin: 06/22/18 04:06 Dose: 600 mg Oxycodone/Acetaminophen (Percocet 325-5 Mg) 2 tab PO Q4H PRN PRN Reason: Pain (moderate 4-6) Last Admin: 06/22/18 07:04 Dose: 2 tab Discontinued Medications Albuterol (Proventil Neb Soln) 2.5 mg NEB ONETIME PRN PRN Reason: history of recent URI. Stop: 06/21/18 18:00 Albuterol (Proventil Neb Soln) 2.5 mg NEB ONETIME PRN PRN Reason: improve ventilation Stop: 06/21/18 18:00 Bupivacaine HCl (Marcaine 0.5%) Confirm Administered Dose 30 ml .ROUTE .STK-MED ONE Stop: 06/21/18 08:07 Last Admin: 06/21/18 09:31 Dose: 10 ml Cefazolin Sodium (Ancef) Confirm Administered Dose 2 gm .ROUTE .STK-MED ONE Stop: 06/21/18 07:31 Dexamethasone (Dexamethasone) Confirm Administered Dose 20 mg .ROUTE .STK-MED ONE Stop: 06/21/18 07:31 Diphenhydramine HCl (Benadryl) 25 mg IVPUSH Q6H PRN PRN Reason: pruritis Stop: 06/21/18 18:00 Ephedrine Sulfate (Ephedrine Sulfate) 5 mg IVPUSH ASDIRECTED PRN PRN Reason: Hypotension Stop: 06/21/18 18:00 Fentanyl (Sublimaze) Confirm Administered Dose 250 mcg .ROUTE .STK-MED ONE Stop: 06/21/18 07:32 Fentanyl (Sublimaze) 50 mcg IVPUSH Q5M PRN PRN Reason: Pain Stop: 06/21/18 18:00 Last Admin: 06/21/18 11:20 Dose: 50 mcg Glycopyrrolate () Confirm Administered Dose 1 mg .ROUTE .STK-MED ONE Stop: 06/21/18 09:46 Hydromorphone HCl (Dilaudid) Confirm Administered Dose 0.5 mg .ROUTE .STK-MED ONE Stop: 06/21/18 07:31 Hydromorphone HCl (Dilaudid) 0.5 mg IVPUSH Q15M PRN PRN Reason: Pain (severe 7-10) Stop: 06/21/18 18:00 Last Admin: 06/21/18 11:50 Dose: 0.25 mg Lactated Ringer's (Ringers, Lactated) 1,000 mls @ 125 mls/hr IV ASDIRECTED CHAR Stop: 06/21/18 23:00 Last Admin: 06/21/18 08:15 Dose: 125 mls/hr Lidocaine HCl (Xylocaine-Mpf 1%) Confirm Administered Dose 6 mls @ as directed .ROUTE .STK-MED ONE Stop: 06/21/18 07:31 Lactated Ringer's (Ringers, Lactated) Confirm Administered Dose 1,000 mls @ as directed .ROUTE .STK-MED ONE Stop: 06/21/18 07:31 Phenylephrine HCl 1 mg/ Sodium (Chloride) 10.1 mls @ 1 mls/sec IV TITRATE CHAR; Protocol Stop: 06/21/18 18:00 Lactated Ringer's (Ringers, Lactated) Confirm Administered Dose 1,000 mls @ as directed .ROUTE .STK-MED ONE Stop: 06/21/18 09:33 Ketorolac Tromethamine (Toradol) Confirm Administered Dose 30 mg .ROUTE .STK- MED ONE Stop: 06/21/18 07:31 Lidocaine/Epinephrine (Xylocaine 1% With Epinephrine 1:100,000) Confirm Administered Dose 20 ml .ROUTE .STK-MED ONE Stop: 06/21/18 08:07 Lidocaine/Sodium Bicarbonate (Buffered Lidocaine 1% In Ns 8.4%) 0.25 ml IDERM ONETIME PRN PRN Reason: Prior to IV Start Stop: 06/21/18 18:00 Last Admin: 06/21/18 08:15 Dose: 0.25 ml Midazolam HCl (Versed 1 Mg/Ml) Confirm Administered Dose 2 mg .ROUTE .STK-MED ONE Stop: 06/21/18 07:32 Midazolam HCl (Versed 1 Mg/Ml) Confirm Administered Dose 2 mg .ROUTE .STK-MED ONE Stop: 06/21/18 08:52 Midazolam HCl (Versed 1 Mg/Ml) 2 mg IVPUSH ONETIME PRN PRN Reason: Sedation Stop: 06/21/18 18:00 Neostigmine Methylsulfate (Neostigmine) Confirm Administered Dose 5 mg .ROUTE .STK-MED ONE Stop: 06/21/18 09:46 Ondansetron HCl (Zofran) Confirm Administered Dose 4 mg .ROUTE .STK-MED ONE Stop: 06/21/18 07:31 Ondansetron HCl (Zofran) 4 mg IVPUSH ONETIME PRN PRN Reason: Nausea/Vomiting Stop: 06/21/18 18:00 Phenylephrine HCl (Phenylephrine In Ns 100 Mcg/Ml) Confirm Administered Dose 1 mg .ROUTE .STK-MED ONE Stop: 06/21/18 09:35 Propofol (Diprivan 20 Ml) Confirm Administered Dose 200 mg .ROUTE .STK-MED ONE Stop: 06/21/18 07:31 Rocuronium Perry (Zemuron) Confirm Administered Dose 50 mg .ROUTE .STK-MED ONE Stop: 06/21/18 07:31 Scopolamine (Transderm-Scop) 1.5 mg TRDERM ONETIME PRN PRN Reason: PONV Stop: 06/21/18 18:00 Last Admin: 06/21/18 08:14 Dose: 1.5 mg Sodium Chloride (Saline Flush) 10 ml FLUSH ASDIRECTED PRN PRN Reason: Keep Vein Open Stop: 06/21/18 18:00 Sodium Chloride (Normal Saline) Confirm Administered Dose 50 ml .ROUTE .[facility] ONE Stop: 06/21/18 08:07
[2018-06-22 09:55] VITALS: BP 124/70
== END 2018-06-22 08:55 | disposition home or self-care (01) ==
LOC: JD.SDS 08:00 → JD.OB 12:35
PROVIDERS: ADMIT Obstetrics & Gynecology; ATTEND Obstetrics & Gynecology
DX: D25.2 Subserosal leiomyoma of uterus (principal); N84.1 Polyp of cervix uteri; N72 Inflammatory disease of cervix uteri; E03.9 Hypothyroidism, unspecified; E87.6 Hypokalemia; M54.16 Radiculopathy, lumbar region; M19.90 Unspecified osteoarthritis, unspecified site; Z88.0 Allergy status to penicillin; Z91.011 Allergy to milk products; Z88.8 Allergy status to other drugs, medicaments and biological substances; Z88.1 Allergy status to other antibiotic agents; Z88.2 Allergy status to sulfonamides; Z79.899 Other long term (current) drug therapy
CPT/HCPCS: 00840; A9270-GY; G0378; J0690; J1100; J1170; J1885; J2001; J2250; J2370; J2405; J2704; J2710; J3010; J3490; J7120

== ENCOUNTER 2024-04-10 11:54 | Emergency (ER) | payer MEDICARE, MEDICAID ==
[2024-04-10 14:40] VITALS: BP 137/89; PULSE 78
== END 2024-04-10 14:35 | disposition home or self-care (01) ==
LOC: JD.ED 11:54
DX: S92.355A Nondisplaced fracture of fifth metatarsal bone, left foot, initial encounter for closed fracture (principal); E03.9 Hypothyroidism, unspecified; Z90.710 Acquired absence of both cervix and uterus; Z88.0 Allergy status to penicillin; Z88.1 Allergy status to other antibiotic agents; Z88.8 Allergy status to other drugs, medicaments and biological substances; Z91.011 Allergy to milk products; Z79.899 Other long term (current) drug therapy; X50.1XXA Overexertion from prolonged static or awkward postures, initial encounter
CPT/HCPCS: 73630-26-LT; 73630-LT; 99283